=== PATIENT | female | born 1970 | race Caucasian/White ===

== ENCOUNTER → 2020-08-05 11:18 | Outpatient (CLI) | payer BC, SELFPAY ==
--- NOTE | ~2020-08-05 | MM_ITS ---
EXAMINATION: MM screening [facility] BI w cadence HISTORY: Screening mammogram TECHNIQUE: Craniocaudal and mediolateral oblique 3-D tomosynthesis images were obtained and synthetic 2-D images were generated. CAD analysis was submitted and interpreted. COMPARISON: 06/15/2019, 09/21/2018, 05/18/2018, 05/02/2017 BREAST PARENCHYMAL COMPOSITION: There are scattered areas of fibroglandular density. FINDINGS: There is no evidence of suspicious mass, calcification, or architectural distortion to sugg est malignancy in either breast. There has been no suspicious interval change. IMPRESSION: 1. No mammographic evidence of malignancy. 2. Recommend routine screening mammography in one year. BI-RADS Category 1: Negative Reviewed, dictated and finalized at location A. 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
== END ==
PROVIDERS: PCP Family Medicine; Visit Provider Obstetrics & Gynecology
DX: Z12.31 Encounter for screening mammogram for malignant neoplasm of breast (principal)
CPT/HCPCS: 77063; 77067

== ENCOUNTER 2020-09-05 12:27 | Outpatient (CLI) | payer BC, SELFPAY ==
--- NOTE | ~2020-09-05 | XR_ITS ---
EXAMINATION: XR lg joint inject/asp w image DATE: 09/05/2020 13:25 INDICATION: Left hip pain. TECHNIQUE: A time-out was performed to verify the patient's name, date of , and procedure to b e performed. The procedure including the risks, benefits, and alternatives was discussed with the pat ient. Risks discussed included bleeding and infection. The patient understood the risks and agreed to proceed. The skin overlying the left hip joint was prepped and draped in usual sterile fashion. An esthetic was administered with 1% lidocaine subcutaneously. A 22 G needle was advanced under fluoros copic guidance into the joint. Injection of 1 mL of Omnipaque 240 confirmed intra-articular position of the needle. Subsequently, injectate consisting of 5 mL 1% lidocaine and 1 mL 40 mg/mL Depo-Medro l was instilled. The needle was removed and the entry site was cleaned and dressed. There were no i mmediate complications. Fluoroscopy exposure time was 0.0 minutes. The total number of images was 2. FINDINGS: Real-time fluoroscopy demonstrates the needle in the left hip joint. Patient's pain prior t o procedure:2/10. Patient's pain following the procedure: 0/10. IMPRESSION: 1. Fluoroscopy guided left hip joint injection of local anesthetic and steroid with decrease in the p atient's presenting pain. Reviewed, dictated and finalized at location A. 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 Fluoroscopy guided left hip joint injection of local anesthetic and steroid with decrease in the patient's presenting pain.
== END 2020-09-05 12:28 | disposition home or self-care (01) ==
PROVIDERS: PCP Family Medicine; Visit Provider Orthopaedic Surgery Sports Medicine
DX: M25.552 Pain in left hip (principal)
CPT/HCPCS: 20610; 77002; J1030; Q9966

== ENCOUNTER → 2020-12-03 10:44 | Outpatient (CLI) | payer BC, SELFPAY ==
--- NOTE | ~2020-12-03 | US_ITS ---
EXAMINATION: US thyroid EXAM DATE: 12/03/2020 11:01 INDICATION: Nontoxic goiter. TECHNIQUE: Multiple grayscale and Doppler images of the thyroid were obtained (by a technologist who performed the scan) and subsequently reviewed. Individual nodules and recommendations may be reporte d in accordance with TI-RADS system as designated by the 2017 ACR White Paper TI-RADS committee. Mena catherine is made to prior examination from 01/05/2005. FINDINGS: The right thyroid lobe measures 5.3 x 1.5 x 1.7 cm, the left measuring 4.0 x 1.1 x 1.3 cm. There is r elatively homogeneous thyroid echogenicity with expected amount of vascularity. Previous exam had a predominantly cystic right thyroid lobe midpole lesion measuring 3.2 x 2.0 x 2.1 cm. There is now a solid-appearing lesion in this location, could be the same lesion with collapse of the cystic components, today measuring 1.3 x 0.7 x 1.1, solid (2 points), hypoechoic (2 points), wid er than tall, lobulated margin (2 points), without echogenic foci, category TR4 for this nodule. No other nodule identified. IMPRESSION: Right thyroid lobe nodule; recommend one-year follow-up ultrasound. Reviewed, dictated and finalized at location B.
== END ==
PROVIDERS: PCP Family Medicine; Visit Provider Internal Medicine Endocrinology, Diabetes & Metabolism
DX: E04.9 Nontoxic goiter, unspecified (principal)
CPT/HCPCS: 76536

== ENCOUNTER 2021-05-18 09:34 | Outpatient (CLI) | payer BC, SELFPAY ==
--- NOTE | 2021-05-21 12:42 | WPDHOLTEREM ---
Holter/Event Monitor Holter/Event Monitor Date of procedure: 05/18/21 Holter/Event Procedure: 24 Hr Holter Monitor Indications: Palpitations Conclusion: 1. 24 hour holter monitor on 05/18/21. 2. Predominant rhythm is sinus rhythm. HR range 49-122 bpm; average 70 bpm. 3. There are 1,576 premature supraventricular complexes, 9 supraventricular couplets, 3 supraventricular bigeminy and 48 supraventricular trigeminy. There are 34 episodes of atrial tachycardia, fastest HR 182 bpm and longest lasting 10 beats. 4. There are 5 premature ventricular complexes. No ventricular tachycardia. 5. No sinoatrial or atrioventricular ventricular blocks. No significant pauses greater than 2 seconds. 6. Patient reports symptoms of palpitations and headache which demonstrate sinus rhythm, HR range 57-112 bpm and 2 PAC's.
== END 2021-05-18 09:35 | disposition home or self-care (01) ==
PROVIDERS: PCP Family Medicine; Visit Provider Physician Assistant
DX: R00.2 Palpitations (principal)
CPT/HCPCS: 93225; 93226

== ENCOUNTER → 2021-09-23 10:38 | Outpatient (CLI) | payer BC, SELFPAY ==
--- NOTE | ~2021-09-23 | MM_ITS ---
EXAMINATION: MM screening [facility] BI w cadence HISTORY: Screening mammogram TECHNIQUE: Craniocaudal and mediolateral oblique 3-D tomosynthesis images were obtained and synthetic 2-D images were generated. CAD analysis was submitted and interpreted. COMPARISON: 08/05/2020, 06/15/2019 bilateral screening mammogram examinations BREAST PARENCHYMAL COMPOSITION: There are scattered areas of fibroglandular density. FINDINGS: There is no evidence of suspicious mass, calcification, or architectural distortion to sugg est malignancy in either breast. There has been no suspicious interval change. IMPRESSION: 1. No mammographic evidence of malignancy. 2. Recommend routine screening mammography in one year. BI-RADS Category 1: Negative Reviewed, dictated and finalized at location A.
== END ==
PROVIDERS: PCP Family Medicine; Visit Provider Obstetrics & Gynecology
DX: Z12.31 Encounter for screening mammogram for malignant neoplasm of breast (principal)
CPT/HCPCS: 77063; 77067

== ENCOUNTER → 2022-12-08 15:06 | Outpatient (CLI) | payer BC, SELFPAY ==
--- NOTE | ~2022-12-08 | MM_ITS ---
EXAMINATION: MM screening [facility] BI w cadence HISTORY: Screening TECHNIQUE: Craniocaudal and mediolateral oblique 3-D tomosynthesis images were obtained and synthetic 2-D images were generated. CAD analysis was submitted and interpreted. COMPARISON: Comparison to multiple prior studies sequentially, with oldest reviewed study dated 04/05. BREAST PARENCHYMAL COMPOSITION: Breast composed of scattered areas of fibroglandular density FINDINGS: There is no evidence of suspicious mass, calcification, or architectural distortion to sugg est malignancy in either breast. There has been no suspicious interval change. IMPRESSION: 1. No mammographic evidence of malignancy. 2. Recommend routine screening mammography in one year. BI-RADS Category 1: Negative Reviewed, dictated and finalized at location A.
== END ==
PROVIDERS: PCP Obstetrics & Gynecology; Visit Provider Obstetrics & Gynecology
DX: Z12.31 Encounter for screening mammogram for malignant neoplasm of breast (principal)
CPT/HCPCS: 77063; 77067

== ENCOUNTER 2023-12-12 08:08 | Outpatient (CLI) | payer BC, SELFPAY ==
--- NOTE | ~2023-12-12 | MM_ITS ---
EXAMINATION: MM screening [facility] BI w cadence HISTORY: Screening TECHNIQUE: Craniocaudal and mediolateral oblique 3-D tomosynthesis images were obtained and synthetic 2-D images were generated. CAD analysis was submitted and interpreted. COMPARISON: Comparison to multiple prior studies sequentially, with oldest reviewed study dated 05/04. BREAST PARENCHYMAL COMPOSITION: Not dense: There are scattered areas of fibroglandular density. FINDINGS: There is no evidence of suspicious mass, calcification, or architectural distortion to sugg est malignancy in either breast. There has been no suspicious interval change. IMPRESSION: 1. No mammographic evidence of malignancy. 2. Recommend routine screening mammography in one year. BI-RADS Category 1: Negative Reviewed, dictated and finalized at location B.
== END 2023-12-12 08:09 | disposition home or self-care (01) ==
LOC: ANHIMG 08:11
PROVIDERS: PCP Nurse Practitioner Obstetrics & Gynecology; Visit Provider Nurse Practitioner Obstetrics & Gynecology
DX: Z12.31 Encounter for screening mammogram for malignant neoplasm of breast (principal)
CPT/HCPCS: 77063; 77067

== ENCOUNTER 2024-07-02 13:04 | Outpatient (CLI) | payer BC, SELFPAY ==
--- NOTE | ~2024-07-02 | CT_ITS ---
CT of the Abdomen and Pelvis: Indication: Abdominal pain Technique: 2.5 mm axial scans were obtained through the abdomen and pelvis following intravenous adm inistration of 100 cc of Omnipaque 350. Dose reduction technique was used on this scan by utilizing a utomated exposure control and iterative reconstruction technique. The dose-length product (DLP) was 6 23.76 mGy-cm. Findings: Scans through the lung bases are unremarkable. The liver, spleen, pancreas, gallbladder, adrenals and kidneys are within normal limits. There are mi ld atherosclerotic calcifications of the aorta. No lymphadenopathy. No bowel obstruction or bowel wall thickening. There is no evidence to suggest acute appendicitis. Images through the pelvis were performed. Urinary bladder unremarkable. IUD in place. No pelvic mass seen. No ascites. Impression: No significant abnormalities seen. Reviewed, dictated and finalized at [facility]. 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
== END 2024-07-02 13:05 | disposition home or self-care (01) ==
LOC: MICIMG 13:05
PROVIDERS: PCP Obstetrics & Gynecology; Visit Provider Obstetrics & Gynecology
DX: R10.9 Unspecified abdominal pain (principal)
CPT/HCPCS: 74177; Q9967

== ENCOUNTER 2025-01-09 09:19 | Outpatient (CLI) | payer BC, SELFPAY ==
--- NOTE | ~2025-01-09 | MM_ITS ---
EXAMINATION: MM screening casa BI w cadence HISTORY: Screening TECHNIQUE: Craniocaudal and mediolateral oblique 3-D tomosynthesis images were obtained and synthetic 2-D images were generated. CAD analysis was submitted and interpreted. COMPARISON: Comparison to multiple prior studies sequentially, with oldest reviewed study dated 09/21. BREAST PARENCHYMAL COMPOSITION: Dense: The breasts are heterogeneously dense, which may obscure small masses FINDINGS: There is no evidence of suspicious mass, calcification, or architectural distortion to sugg est malignancy in either breast. There has been no suspicious interval change. IMPRESSION: 1. No mammographic evidence of malignancy. 2. Recommend routine screening mammography in one year. BI-RADS Category 1: Negative Reviewed, dictated and finalized at location A.
--- OUTSIDE RECORDS SUMMARY | 2025-01-09 09:30 | XMS_ITS | Clinical Summary ---
Author Organization [email or web address] Address [address] [place] [address] Care Team Providers Care Marketing Director Name Role Phone Anastasia Valentino MD Primary Care Provider Source Comments [email or web address],non-owned Affiliates and Associated Physician Practices is amultiple site organization consisting of ambulatory clinics and hospital sitesin [place], [place], [place] and [place]. This disclosure is being madepursuant to the Care Everywhere program and may not contain all information available regarding this patient. Last updated 18.[email or web address] Allergies No known active allergies Medications * Be aware that medications may not be up to date on this document. Alwaysverify current medications with the patient. 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 Gender Identity Not on file Sexual Orientation Not on file Last Filed Vital Signs Vital Sign Reading Time Taken Comments Blood Pressure 118/72 03/27/2019 9:01 AM CDT Pulse 71 03/27/2019 9:01 AM CDT Temperature 37.3 C (99.1 F) 03/27/2019 9:01 AM CDT Respiratory Rate 16 03/27/2019 9:01 AM CDT Oxygen Saturation 97% 03/27/2019 9:01 AM CDT Inhaled Oxygen Concentration - - Weight 83.9 kg (185 lb) 03/27/2019 9:01 AM CDT Height 170.2 cm (5' 7) 03/27/2019 9:01 AM CDT Body Mass Index 28.98 03/27/2019 9:01 AM CDT Plan of Treatment Health Maintenance Due Date Last Done Comments COLOGUARD (AGES 45-75) - COL ON CA SCREENING 1969 COLON MONITORING 1969 COLONOSCOPY - COLON CA SCREENING 1969 CT COLONOGRAPHY - COLON CA SCREENING 1969 Colorectal Cancer Screening 1969 FIT - COLON CA SCREENING 1969 FLEX SIG - COLON CA SCREENING 1969 LIPID TESTING 1969 MAMMOGRAM 1969 HIV SCREENING 02/26/1984 HEPATITIS C SCREENING 02/21/1987 DTAP/TDAP/TD VACCINES (1 - Tdap) 02/26/1988 HEPATITIS B VACCINE (1 of 3 - 19+ 3-dose series) 02/26/1988 PNEUMOCOCCAL VACCINE 50+ (1 of 1 - PCV) 2019 ZOSTER VACCINE (1 of 2) 2019 SCREENING FOR DIABETES 03/27/2019 COVID-19 VACCINE (1 - 2023-2 5 season) 2024 DEPRESSION SCREENING 07/04/2024 INFLUENZA VACCINE (Season Ended) 2025 HIB VACCINE Aged Out No longer eligi ble based on patient's age to complete this topic HPV VACCINE Aged Out No longer eligi ble based on patient's age to complete this topic MENINGOCOCCAL (Group B) VACC INE SHARED DECISION-MAKING Aged Out No longer eligibl e based on patient's age to complete this topic MENINGOCOCCAL GROUPS A/C/Y/W VACCINE Aged Out No longer eligible b ased on patient's age to complete this topic Insurance [employer] Care Teams Marketing Director Relationship Specialty Start Date End Date Anastasia Valentino MD [address] [place] [address] PCP - General Family Medicine 03/27/19
--- OUTSIDE RECORDS SUMMARY | 2025-01-09 09:30 | XMS_ITS | Encounter Summary ---
Author Organization [facility] Address [address] [place] [address] Care Team Providers Care Faculty I On Call Medical Assistant Name Role Phone Anastasia Valentino MD Primary Care Provider [phone] Anastasia Valentino MD Primary Care Provider [phone] Anastasia Valentino MD Unavailable Encounter Details Date Type Department Care Team (Late st Contact Info) Description 08/26/2017 Orders Only [facility] Information Management [address] [place] [id number] Scanning, Provider Social History Tobacco Use Types Packs/Day Years Used Date Smoking Tobacco: Never Alcohol Use Standard Drinks/Week Comments Yes 0 (1 standard drink = 0.6 oz pur e alcohol) Comments Unknown Sex and Gender Information Value Date Recorded Sex Assigned at Not on file 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 Gender Identity Not on file Sexual Orientation Not on file documented as of this encounter Plan of Treatment Not on file documented as of this encounter Procedures Procedure Name Priority Date/Time Associated Diagnosis Comments CARDIOLOGY DOCUMENT SCAN 08/26/2017 documented in this encounter Results * Cardiology Document Scan (08/26/2017) Anatomical Region Laterality Modality Other us Provider Scanning CV CARDIAC SERVICES PROCEDURES Final Result documented in this encounter Visit Diagnoses Not on filedocumented in this encounter Care Teams Faculty I On Call Medical Assistant Relationship Specialty Start Date End Date Anastasia Valentino MD [address] [place] [address] PCP - General 08/28/15 09/04/17 Anastasia Valentino MD [address] [place] [address] PCP - General Family Medicine 09/05/17 Anastasia Valentino MD [address] [place] [address] 09/05/17 documented as of this encounter
--- OUTSIDE RECORDS SUMMARY | 2025-01-09 09:30 | XMS_ITS | Clinical Summary ---
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 HOLD medication for diarrhea. 80 tablet 1 Active Additional Information Patient not taking.Reported on 06/11/2024 traMADoL (ULTRAM) 50 mg tabletIndicatio ns:Postoperativ e pain Take 1-2 tablets (50-100 mg total) by mouth every 6 (six) hours 56 tablet 1 Active Additional Information Patient not taking.Reported on 06/11/2024 nitrofurantoin (MACRODANTIN) 100 mg capsule TAKE 1 CAPSULE BY MOUTH EVERY 12 HOURS FOR 7 DAYS 2 Active amoxicillin 500 mg tablet/capsuleI ndications:Prop hylactic antibiotic TAKE 4 PILL 1 HOUR BEFORE DENTAL APPOINTMENT. 4 tablet/capsu le 5 3 Active Additional Information Patient not taking.Reported on 06/11/2024 levonorgestreL (Mirena) IUD Take by intrauterine route. Active nystatin-triamc inolone ointment APPLY TO THE AFFECTED AREA(S) BY TOPICAL ROUTE 2 TIMES PER DAY FOR 7 DAYS Active meloxicam (MOBIC) 15 mg tablet Take 1 tablet (15 mg total) by mouth daily 90 tablet 4 Active Additional Information Patient not taking.Reported on 06/11/2024 methylPREDNISol one (MEDROL DOSEPACK) 4 mg DosepackIndicat ions:Acute right-sided low back pain, unspecified whether sciatica present Take 6 tabs on day 1, reduce dose by 1 daily until prescription is complete. 1 packet 4 Active Active Problems Problem Noted Date Diagnosed Date Class 1 obesity in adult 06/19/2021 Primary osteoarthritis of left hip 06/08/2021 Overview (06/08/2021): Added automatically from request for surgery [id number] Palpitations 09/30/2017 Chest heaviness 09/30/2017 PVC (premature ventricular contraction) 10/01/19 18 PAT (paroxysmal atrial tachycardia) ([facility]/H[facility]) Galactorrhea not associated with childbirth 08/2014 Overview (10/13/2023): Galactorrhea not associated with childbirth;Recorded Elsewhere: No Location: [facility] Source: EHR Chronic: N Practice ID: [id number] Billable Time: 08:45:00 AM Hypothyroidism 04/30/2013 Immunizations Immunization Administration Dates Next Due Influenza, Quadrivalent, Rec ombinant, Egg Free, Preservative Free, Intramuscular 04/02/2020,06/14/2019 Influenza, Quadrivalent, Spl it, Preservative Free, Intramuscular 04/04/2018 TD Preservative Free 10/18/2017 Surgical History Surgery Date Site/Laterality Comments KNEE ARTHROSCOPY W/ ACL RECONSTRUCTION Medical History Medical History Date Comments Cardiac rhythm disturbance Family History Medical History Relation Name Comments Anesthesia problems Mother received anesthesia during nephrectomy/appy. had beginnings of dementia. prolonged surgery, feels anesthesia exacerbated dementia. Has not imporoved. Mental illness Mother Relation Name Status Comments Mother Social History Tobacco Use Types Packs/Day Years Used Date Smoking Tobacco: Never Smokeless Tobacco: Never Alcohol Use Standard Drinks/Week Comments Yes 0 (1 standard drink = 0.6 oz pur e alcohol) AUDIT-C Answer Date Recorded Q1: How often do you have a drink containing alc ohol? 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 Gender Identity Not on file Sexual Orientation Not on file Obstetrics History Last Filed Vital Signs Vital Sign Reading Time Taken Comments Blood Pressure 131/77 06/11/2024 6:08 PM FINANCE ASSISTANT Pulse 68 06/11/2024 6:08 PM FINANCE ASSISTANT Temperature 36.6 C (97.9 F) 06/11/2024 6:08 PM FINANCE ASSISTANT Respiratory Rate 18 06/11/2024 6:08 PM FINANCE ASSISTANT Oxygen Saturation 98% 06/11/2024 6:08 PM FINANCE ASSISTANT Inhaled Oxygen Concentration - - Weight 82.5 kg (181 lb 14.4 oz) 06/11/2024 6:08 PM FINANCE ASSISTANT Height 170.2 cm (5' 7.01) 06/11/2024 6:08 PM CS T Body Mass Index 28.48 06/11/2024 6:08 PM FINANCE ASSISTANT Plan of Treatment Health Maintenance Due Date Last Done Comments Cervical Cancer Screening 1969 Colon Cancer Screening-Colonoscopy 1969 Depression Screening 1969 Hepatitis C Screening 1969 Hepatitis B Screening 1987 Regular Well Visit/Exam 18-64 1987 DTaP/Tdap/Td Vaccine (1 - Tdap) 10/19/2017 10/18/2017 Zoster Vaccine (1 of 2) 2019 Breast Cancer Screening-Mammogram 12/09/2023 12/08/2022, 08/05/2020 Covid-19 Vaccine (2023-2 5 season) 2024 10/29/2020, 10/01/2020 Influenza Vaccine (Season Ended) 2025 04/02/2020, 06/14/2019, 04/04/2018 Pneumococcal vaccine <65 Aged Out No longer eligible based on patient's age to complete this topic Medical Devices Implanted Type Area Esthetician Permanent Makeup Artist Device Identifier Shelf Expiration Date Model / Serial / Lot [employer] [id number] Cup Acetabular Bi Mentum Od49mm Femoral Proximal Press Fit - Sna - [id number] Implanted:Qty: 1 on 06/25/2021 by Rashid Amaya MD at [facility] Other - see comments Left: Hip [employer] [id number] 10/01/2024 [id number] / NA / [id number] Description:Implant pause pe rformed [employer] [id number] Actis Collar Hip 7 Standard Offset Stem Femoral - Sna - [id number] Implanted:Qty: 1 on 06/25/2021 by Rashid Amaya MD at [facility] Other - see comments Left: Hip [employer] [id number] 06/02/2031 [id number] / NA / [id number] Description:Implant pause pe rformed [employer] [id number] Articul/Abelardo 28mm Cementless Hip +1.5mm 12/14 Taper Head Femoral Latex Free - Sna - [id number] Implanted:Qty: 1 on 06/25/2021 by Rashid Amaya MD at [facility] Other - see comments Left: Hip [employer] [id number] 05/03/2026 [id number] / NA / [id number] Description:Implant pause pe rformed [employer] [id number] Liner Acetabular Bi Mentum Polyethylene Od49mm Id28mm Femoral Proximal - Sna - [id number] Implanted:Qty: 1 on 06/25/2021 by Rashid Amaya MD at [facility] Other - see comments Left: Hip [employer] [id number] 10/01/2025 [id number] / NA / [id number] Description:Implant pause pe rformed [place] For more information, please contact: [phone] * Full Code (Latest Code Status on File) Date Activated Date Inactivated Comments 06/25/2021 8:27 AM 06/25/2021 7:28 PM Care Teams Backshoe Person Relationship Specialty Start Date End Date Anastasia Valentino MD [address] [place] [address] PCP - General Family Medicine 09/05/17 Anastasia Valentino MD [address] [place] [address] 09/05/17
--- OUTSIDE RECORDS SUMMARY | 2025-01-09 09:30 | XMS_ITS | Data Portability ---
Author Organization [facility] Address [address] [place] [address] [place] [address] Assessment Encounter Date Assessment Date Assessment LastModified by Organization Details LastModified Time 02/18/2023 02/18/2023 Annual gynecological exam performed. Patient will come back in a year unless there are new symptoms. [email or web address] Not available 02/18/2023 09:50:45 Plan of Treatment Reminders Order Date Submit Date Provider Last Modified By Organization Details Last Modified Time Details Appointments None recorded. Lab test, urine 2023 024 [email or web address], [address], [place], [address], 4 12:05:35 CBC w/ auto diff 2023 024 [facility] (Lab), [address], [place], [address], 4 11:23:00 CMP, serum or plasma 2023 024 [facility] (Lab), [address] [place], [address], 4 11:23:01 TSH, serum or plasma 2022 023 [facility] (Lab), [address] [place], [address], 3 05:37:45 HbA1c (hemoglobin A1c), blood 2022 023 [facility] (Lab), [address], [place], [address], 3 05:37:46 lipid panel, blood 2022 023 [facility] (Lab), [address], [place], [address], 3 05:37:45 CBC w/ auto diff 2022 023 [facility] (Lab), [address], [place], [address], 3 05:37:44 CMP, serum or plasma 2022 023 [facility] (Lab), [address], [place], [address], 3 05:37:45 Referral None recorded. Procedures None recorded. Surgeries None recorded. Imaging US, transvagina l 2023 024 [email or web address] [facility], [address], [address], [place], [address], 4 19:53:43 US, pelvis, transabdomi nal + transvagina l 2023 024 [email or web address], [address], [place], [address], 4 12:24:44 Medication Orders None recorded. Patient TargetsNo targets recorded. Patient InstructionsNo instructions recorded. Reason for Referral None Reported. Results Created Date Observation Date Name Description Value Unit Range Abnormal Flag Note LastModifiedBy Organization Detail LastModifiedTime 02/19/20 23 02/18/2023 CBC W/DIF F WBC 4.8 10'3/ uL 3.6-10 .2 Not Available [facility] (Lab) [address], [place], [address], 02/19/2023 05:37:44 02/19/20 23 02/18/2023 CBC W/DIF F RBC 4.08 10'6/ uL (based on docume nted legal sex) 4.10-5 .30 low Not Available [facility] (Lab) [address], [place], [address], 02/19/2023 05:37:44 02/19/20 23 02/18/2023 CBC W/DIF F HGB 12.8 g/dL (based on docume nted legal sex) 11.9-1 5.8 Not Available [facility] (Lab) [address], [place], [address], 02/19/2023 05:37:44 02/19/20 23 02/18/2023 CBC W/DIF F HCT 39.5 % (based on docume nted legal sex) 37.4-4 8.3 Not Available [facility] (Lab) [address], [place], [address], 02/19/2023 05:37:44 02/19/20 23 02/18/2023 CBC W/DIF F MCV 96.8 fL 82.0-9 9.0 Not Available [facility] (Lab) [address], [place], [address], 02/19/2023 05:37:44 02/19/20 23 02/18/2023 CBC W/DIF F MCH 31.4 pg 27.0-3 3.0 Not Available [facility] (Lab) [address], [place], [address], 02/19/2023 05:37:44 02/19/20 23 02/18/2023 CBC W/DIF F MCHC 32.4 g/dL 32.0-3 6.0 Not Available [facility] (Lab) [address], [place], [address], 02/19/2023 05:37:44 08/18/20 23 02/18/2023 CBC W/DIF F RDW 12.9 % 11.0-1 5.0 Not Available [facility] (Lab) [address], [place], [address], 02/19/2023 05:37:44 02/19/20 23 02/18/2023 CBC W/DIF F plt 226 10'3/ uL 150-45 0 Not Available [facility] (Lab) [address], [place], [address], 02/19/2023 05:37:44 02/19/20 23 02/18/2023 CBC W/DIF F MPV 11.0 fL 9.8-12 .7 Not Available [facility] (Lab) [address], [place], [address], 02/19/2023 05:37:44 02/19/20 23 02/18/2023 CBC W/DIF F NRBC's 0.0 % 0 Not Available [facility] (Lab) [address], [place], [address], 02/19/2023 05:37:44 02/19/20 23 02/18/2023 CBC W/DIF F absolute NRBCs 0.0 10'3/ uL 0 Not Available [facility] (Lab) [address], [place], [address], 02/19/2023 05:37:44 02/19/20 23 02/18/2023 CBC W/DIF F neutrophils 58.6 % 37.0-7 2.0 Not Available [facility] (Lab) [address], [place], [address], 02/19/2023 05:37:44 02/19/20 23 02/18/2023 CBC W/DIF F lymphocytes 30.5 % 16.0-4 8.0 Not Available [facility] (Lab) [address], [place], [address], 02/19/2023 05:37:44 02/19/20 23 02/18/2023 CBC W/DIF F monocytes 7.9 % 4.0-14 .0 Not Available [facility] (Lab) [address] [facility], [place], [address], 02/19/2023 05:37:44 02/19/20 23 02/18/2023 CBC W/DIF F eosinophils 1.5 % 0.0-9. 0 Not Available [facility] (Lab) [address] [facility], [place], [address], 02/19/2023 05:37:44 02/19/20 23 02/18/2023 CBC W/DIF F basophils 1.3 % 0.0-2. 0 Not Available [facility] (Lab) [address] [facility], [place], [address], 02/19/2023 05:37:44 02/19/20 23 02/18/2023 CBC W/DIF F immature granulocytes 0.2 % no define d refere nce range Not Available [facility] (Lab) [address] [facility], [place], [address], 02/19/2023 05:37:44 02/19/20 23 02/18/2023 CBC W/DIF F absolute neutrophils 2.8 10'3/ uL 1.1-6. 0 Not Available [facility] (Lab) [address] [place], [address], 02/19/2023 05:37:44 02/19/20 23 02/18/2023 CBC W/DIF F absolute lymphocytes 1.5 10'3/ uL 0.7-3. 4 Not Available [facility] (Lab) [address] [place], [address], 02/19/2023 05:37:44 02/19/20 23 02/18/2023 CBC W/DIF F absolute monocytes 0.4 10'3/ uL 0.3-1. 0 Not Available [facility] (Lab) [address] [facility], [place], [address], 02/19/2023 05:37:44 02/19/20 23 02/18/2023 CBC W/DIF F absolute eosinophils 0.1 10'3/ uL 0.0-0. 6 Not Available [facility] (Lab) [address] [facility], [place], [address], 02/19/2023 05:37:44 02/19/20 23 02/18/2023 CBC W/DIF F absolute basophils 0.1 10'3/ uL 0.0-0. 1 Not Available [facility] (Lab) [address] [facility], [place], [address], 02/19/2023 05:37:44 02/19/20 23 02/18/2023 CBC W/DIF F absolute immature granulocytes 0.0 10'3/ uL 0.00-0 .10 2022 3:11 AM: P indic ates parti al resul ts on a panel have been relea sed. Addit ional resul ts will follo w. 2022 3:11 AM: This resul t has been final verif ied. No addit ional or yang ed resul ts are expec rosalina. Not Available [facility] (Lab) [address] [facility], [place], [address], 02/19/2023 05:37:44 02/19/20 23 02/18/2023 LIPID PANEL ,AMA (LDL- CALC) total cholesterol 165 mg/dL 0-199 Not Available [facility] (Lab) [address] [facility], [place], [address], 02/19/2023 05:37:44 02/19/20 23 02/18/2023 LIPID PANEL ,AMA (LDL- CALC) triglyceride s 58 mg/dL 0.00-1 50.00 NCEP Refer ence Value s for Trigl yceri jose: Sabi l: <150 mg/dL Borde rline High: 150 - 199 mg/dL High: 200 - 499 mg/dL Very High: >/= 500 mg/dL Not Available [facility] (Lab) [address] [facility], [place], [address], 02/19/2023 05:37:44 02/19/20 23 02/18/2023 LIPID PANEL ,AMA (LDL- CALC) HDL cholesterol 56 mg/dL >40 Not Available [facility] (Lab) [address] [facility], [place], [address], 02/19/2023 05:37:44 02/19/20 23 02/18/2023 LIPID PANEL ,AMA (LDL- CALC) LDL cholesterol 95 mg/dL 0-99 Cutof f value s recom elmer d by the Natio nal Mary stero l Educa tion Progr am: GURWINDER ABLE: Mary stero l <200 mg/dL LDL <100 mg/dL BORDE RLINE : Mary stero l 200-2 39 mg/dL LDL 101-1 59 mg/dL HIGHE R RISK: Mary stero l >240 mg/dL LDL >160 mg/dL , HDL <40 mg/dL Not Available [facility] (Lab) [address] [facility], [place], [address], 02/19/2023 05:37:44 02/19/2002/18/2023 LIPID PANEL ,AMA (LDL- CALC) non-HDL cholesterol 109 mg/dL no refere nce range A reaso nable goal for non-H DL mary stero l is one that is 30 mg/dL highe r than the LDL mary stero l goal. Not Available [facility] (Lab) [address] [facility], [place], [address], 02/19/2023 05:37:44 02/19/2002/18/2023 LIPID PANEL ,AMA (LDL- CALC) chol/HDL ratio 2.9 . 0.0-5. 0 On October 26, 2022, [facility] labor narda yagn ed the equat ion for calcu latin g estim ated low-d ensit y lipop rotei n-cho leste rol (LDL- C) from the Fried renetta equat ion to the Cyndie n/Hop kins equat ion. This new equat ion is only valid for lipid panel s with trigl yceri jose < 400 mg/dL . Studi es have demon amrita ed that this new equat ion will impro ve the accur acy of LDL-C , espec ially in scena becker when LDL-C cintia ntrat ions are relat ively low (< 100 mg/dL ), trigl yceri jose are eleva rosalina, or patie nt is non-f astin g. Refer ences : - Cyndie gaytan, Timbo Crowell, Nino Duenas , Vicki astorga, Harlan Loaiza, Harlan pearson, Rafael Berg. Nate bland , and Manuelito Ness . 2013. Comp ariso n of a Novel Metho d vs the Fried renetta Equat ion for Estim ating Low-D ensit y Lipop rotei n Mary stero l Level s from the Stand nikita Lipid Profi le. [place]: The Journ al of the Ameri can Medic al Assoc iatio n 310 (19): 2060- . - Yeni robles V, Lakesha J, Blanche ar A, Diana M, Van e R, Mark robles E, Nate bland RS, Grover SR, Cyndie gaytan SS. Fast ing Versu s Nonfa sting and Low-D ensit y Lipop rotei n Mary stero l Accur acy. Circu latio n. 2017Jul 05;137 (1):1 0-19. Not Available [facility] (Lab) [address] [facility], [place], [address], 02/19/2023 05:37:44 02/19/20 23 02/18/2023 CMP(C OMPRE HENSI VE METAB OLIC PANEL ) sodium 139 mmol/ L 133-14 6 Not Available [facility] (Lab) [address] [facility], [place], [address], 02/19/2023 05:37:45 02/19/20 23 02/18/2023 CMP(C OMPRE HENSI VE METAB OLIC PANEL ) potassium 4.1 mmol/ L 3.5-5. 1 Not Available [facility] (Lab) [address] [facility], [place], [address], 02/19/2023 05:37:45 02/19/20 23 02/18/2023 CMP(C OMPRE HENSI VE METAB OLIC PANEL ) chloride 105 mmol/ L 98-107 Not Available [facility] (Lab) [address] [facility], [place], [address], 02/19/2023 05:37:45 02/19/20 23 02/18/2023 CMP(C OMPRE HENSI VE METAB OLIC PANEL ) carbon dioxide 30 mmol/ L 21-31 Not Available [facility] (Lab) [address] [facility], [place], [address], 02/19/2023 05:37:45 02/19/20 23 02/18/2023 CMP(C OMPRE HENSI VE METAB OLIC PANEL ) anion gap 4 mmol/ L 4-13 Not Available [facility] (Lab) [address] [facility], [place], [address], 02/19/2023 05:37:45 02/19/20 23 02/18/2023 CMP(C OMPRE HENSI VE METAB OLIC PANEL ) blood urea nitrogen 10 mg/dL 7-25 Not Available [facility] (Lab) [address] [facility], [place], [address], 02/19/2023 05:37:45 02/19/20 23 02/18/2023 CMP(C OMPRE HENSI VE METAB OLIC PANEL ) creatinine 0.77 mg/dL 0.60-1 .30 Not Available [facility] (Lab) [address] [facility], [place], [address], 02/19/2023 05:37:45 02/19/20 23 02/18/2023 CMP(C OMPRE HENSI VE METAB OLIC PANEL ) egfrcr (CKD-epi 2020) >90 mL/mi n/1.7 3_m2 >=60 Not Available [facility] (Lab) [address] [facility], [place], [address], 02/19/2023 05:37:45 02/19/20 23 02/18/2023 CMP(C OMPRE HENSI VE METAB OLIC PANEL ) calcium 9.0 mg/dL 8.3-10 .5 Not Available [facility] (Lab) [address] [facility], [place], [address], 02/19/2023 05:37:45 02/19/20 23 02/18/2023 CMP(C OMPRE HENSI VE METAB OLIC PANEL ) glucose 87 mg/dL 70-100 Not Available [facility] (Lab) [address] [facility], [place], [address], 02/19/2023 05:37:45 02/19/20 23 02/18/2023 CMP(C OMPRE HENSI VE METAB OLIC PANEL ) protein, total 6.9 g/dL 6.4-8. 3 Not Available [facility] (Lab) [address] [facility], [place], [address], 02/19/2023 05:37:45 02/19/20 23 02/18/2023 CMP(C OMPRE HENSI VE METAB OLIC PANEL ) albumin 4.3 g/dL 3.5-5. 0 Not Available [facility] (Lab) [address] [facility], [place], [address], 02/19/2023 05:37:45 02/19/20 23 02/18/2023 CMP(C OMPRE HENSI VE METAB OLIC PANEL ) ALT 11 units /L 9-43 Not Available [facility] (Lab) [address] [facility], [place], [address], 02/19/2023 05:37:45 02/19/20 23 02/18/2023 CMP(C OMPRE HENSI VE METAB OLIC PANEL ) alkaline phosphatase 48 units /L 34-104 Not Available [facility] (Lab) [address] [facility], [place], [address], 02/19/2023 05:37:45 02/19/20 23 02/18/2023 CMP(C OMPRE HENSI VE METAB OLIC PANEL ) AST 14 units /L 13-39 Not Available [facility] (Lab) [address] [facility], [place], [address], 02/19/2023 05:37:45 02/19/20 23 02/18/2023 CMP(C OMPRE HENSI VE METAB OLIC PANEL ) bilirubin, total 0.6 mg/dL 0.2-1. 2 Not Available [facility] (Lab) [address] [facility], [place], [address], 02/19/2023 05:37:45 02/19/20 23 02/18/2023 TSH, REFLE X FREE T4 TSH 2.09 uIU/m L 0.30-5 .33 Not Available [facility] (Lab) [address] [facility], [place], [address], 02/19/2023 05:37:45 02/19/20 23 02/18/2023 HEMOG LOBIN A1C hemoglobin A1C 5.4 % 0-5.6 The Ameri can Diabe kalani Assoc iatio n recom mends that a prima ry goal of thera py elleul d be a HBA1C of < 7% and that physi cians shoul d reeva luate the treat ment regim en in patie nts with HBA1C value s consi stent ly > 8%. 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 Elect jazz laurent by Felicitas Good ica on 2022 at 12:31 PM ----- ----- ----- ----- ----- ----- ----- ----- ----- ----- ----- ----- ----- ----- ----- ----- ----- ---- HPV RESUL TS: HPV mRNA E6/E7 : No HPV mRNA Detec rosalina NOTE: This high risk HPV mRNA assay detec ts fourt een high- risk HPV types (16, 18, 31, 33, 35, 39, 45, 51, 52, 56, 58, 59, 66, 68) witho ut diffe renti ation . COMME NT: This speci men was revie wed by a Cytot echno logis t and/o r Patho logis t (as indic ated in this repor t) after evalu ation using the Thinp rep Imagi ng Syste m. CLINI MICHELLE INFOR MATIO N: Menst rual Statu s: LMP (if appli cable ): Clini michelle Histo ry/Pr eviou s Pap: Type of Neopl love (if appli cable ): Signi fican t Clini michelle Findi ngs: Other Histo ry: Hormo bogdan (if appli cable ): PAP EDUCA JENY L NOTE: The Pap Test is a scree ovidio test with an inher ent false negat gaby rate. Liqui d-bas ed sampl ing may decre ase, but will not elimi bety, false negat gaby resul ts. A negat gaby resul t does not precl ude the prese nce and/o r devel opmen t of disea se, since the prese nce of abnor mal cells in the sampl e depen ds on the locat ion of the lesio n and sampl ing techn ique. Deidre nued regul ar scree ovidio is the best metho d of cance r preve ntion . If repor rosalina cytol ogic findi ng do not corre late with physi michelle and/o r histo rical findi ngs, furth er inves tigat ion is recom elmer d, as clini asda chery nted. Not Available [facility] (Lab) [address] [facility], [place], [address], 02/21/2023 13:34:44 06/15/20 24 06/15/2024 CBC W/DIF F WBC 5.4 10'3/ uL 3.5-10 .5 Not Available [facility] (Lab) [address] [facility], [place], [address], 06/16/2024 11:23:00 06/15/20 24 06/15/2024 CBC W/DIF F RBC 4.22 10'6/ uL (based on docume nted legal sex) 3.80-5 .20 Not Available [facility] (Lab) [address] [facility], [place], [address], 06/16/2024 11:23:00 06/15/20 24 06/15/2024 CBC W/DIF F HGB 13.1 g/dL (based on docume nted legal sex) 11.6-1 5.4 Not Available [facility] (Lab) [address] [place], [address], 06/16/2024 11:23:00 06/15/20 24 06/15/2024 CBC W/DIF F HCT 41.3 % (based on docume nted legal sex) 34.0-4 5.0 Not Available [facility] (Lab) [address] [facility], [place], [address], 06/16/2024 11:23:00 06/15/20 24 06/15/2024 CBC W/DIF F MCV 97.9 fL 80.0-9 9.0 Not Available [facility] (Lab) [address] [facility], [place], [address], 06/16/2024 11:23:00 06/15/20 24 06/15/2024 CBC W/DIF F MCH 31.0 pg 27.0-3 4.0 Not Available [facility] (Lab) [address] [facility], [place], [address], 06/16/2024 11:23:00 06/15/20 24 06/15/2024 CBC W/DIF F MCHC 31.7 g/dL 32.0-3 5.5 low Not Available [facility] (Lab) [address] [facility], [place], [address], 06/16/2024 11:23:00 06/15/20 24 06/15/2024 CBC W/DIF F RDW 13.1 % 11.0-1 5.0 Not Available [facility] (Lab) [address] [facility], [place], [address], 06/16/2024 11:23:00 06/15/20 24 06/15/2024 CBC W/DIF F plt 234 10'3/ uL 150-40 0 Not Available [facility] (Lab) [address] [facility], [place], [address], 06/16/2024 11:23:00 06/15/20 24 06/15/2024 CBC W/DIF F MPV 10.8 fL 8.8-12 .1 Not Available [facility] (Lab) [address] [facility], [place], [address], 06/16/2024 11:23:00 06/15/20 24 06/15/2024 CBC W/DIF F NRBC's 0.0 % 0.0 Not Available [facility] (Lab) [address], [place], [address], 06/16/2024 11:23:00 06/15/20 24 06/15/2024 CBC W/DIF F absolute NRBCs 0.0 10'3/ uL no refere nce range establ ished Not Available [facility] (Lab) [address], [place], [address], 06/16/2024 11:23:00 06/15/20 24 06/15/2024 CBC W/DIF F neutrophils 58.5 % 34.0-7 3.0 Not Available [facility] (Lab) [address], [place], [address], 06/16/2024 11:23:00 06/15/20 24 06/15/2024 CBC W/DIF F lymphocytes 30.2 % 15.0-5 0.0 Not Available [facility] (Lab) [address] [facility], [place], [address], 06/16/2024 11:23:00 06/15/20 24 06/15/2024 CBC W/DIF F monocytes 8.8 % 1.0-15 .0 Not Available [facility] (Lab) [address] [facility], [place], [address], 06/16/2024 11:23:00 06/15/20 24 06/15/2024 CBC W/DIF F eosinophils 1.5 % 0.0-8. 0 Not Available [facility] (Lab) [address] [facility], [place], [address], 06/16/2024 11:23:00 06/15/20 24 06/15/2024 CBC W/DIF F basophils 0.6 % 0.0-2. 0 Not Available [facility] (Lab) [address], [place], [address], 06/16/2024 11:23:00 06/15/20 24 06/15/2024 CBC W/DIF F immature granulocytes 0.4 % no define d refere nce range Not Available [facility] (Lab) [address] [facility], [place], [address], 06/16/2024 11:23:00 06/15/20 24 06/15/2024 CBC W/DIF F absolute neutrophils 3.1 10'3/ uL 1.5-8. 0 Not Available [facility] (Lab) [address] [facility], [place], [address], 06/16/2024 11:23:00 06/15/20 24 06/15/2024 CBC W/DIF F absolute lymphocytes 1.6 10'3/ uL 1.0-4. 0 Not Available [facility] (Lab) [address] [facility], [place], [address], 06/16/2024 11:23:00 06/15/20 24 06/15/2024 CBC W/DIF F absolute monocytes 0.5 10'3/ uL 0.2-1. 0 Not Available [facility] (Lab) [address] [facility], [place], [address], 06/16/2024 11:23:00 06/15/20 24 06/15/2024 CBC W/DIF F absolute eosinophils 0.1 10'3/ uL 0.0-0. 6 Not Available [facility] (Lab) [address] [facility], [place], [address], 06/16/2024 11:23:00 06/15/20 24 06/15/2024 CBC W/DIF F absolute basophils 0.0 10'3/ uL 0.0-0. 3 Not Available [facility] (Lab) [address] [facility], [place], [address], 06/16/2024 11:23:00 06/15/20 24 06/15/2024 CBC W/DIF F absolute immature granulocytes 0.0 10'3/ uL 0.00-0 .10 06/16 8:40 AM: P indic ates parti al resul ts on a panel have been relea sed. Addit ional resul ts will follo w. 06/16 8:40 AM: This resul t has been final verif ied. No addit ional or yang ed resul ts are expec rosalina. Not Available [facility] (Lab) [address] [facility], [place], [address], 06/16/2024 11:23:00 06/15/20 24 06/15/2024 CMP(C OMPRE HENSI VE METAB OLIC PANEL ) sodium 138 mmol/ L 133-14 6 Not Available [facility] (Lab) [address] [facility], [place], [address], 06/16/2024 11:23:01 06/15/20 24 06/15/2024 CMP(C OMPRE HENSI VE METAB OLIC PANEL ) potassium 4.3 mmol/ L 3.5-5. 1 Not Available [facility] (Lab) [address] [facility], [place], [address], 06/16/2024 11:23:01 06/15/20 24 06/15/2024 CMP(C OMPRE HENSI VE METAB OLIC PANEL ) chloride 101 mmol/ L 98-107 Not Available [facility] (Lab) [address] [facility], [place], [address], 06/16/2024 11:23:01 06/15/20 24 06/15/2024 CMP(C OMPRE HENSI VE METAB OLIC PANEL ) carbon dioxide 30 mmol/ L 21-31 Not Available [facility] (Lab) [address] [facility], [place], [address], 06/16/2024 11:23:01 06/15/20 24 06/15/2024 CMP(C OMPRE HENSI VE METAB OLIC PANEL ) anion gap 7 mmol/ L 4-13 Not Available [facility] (Lab) [address] [place], [address], 06/16/2024 11:23:01 06/15/20 24 06/15/2024 CMP(C OMPRE HENSI VE METAB OLIC PANEL ) blood urea nitrogen 17 mg/dL 7-25 Not Available [facility] (Lab) [address] [facility], [place], [address], 06/16/2024 11:23:01 06/15/20 24 06/15/2024 CMP(C OMPRE HENSI VE METAB OLIC PANEL ) creatinine 0.72 mg/dL 0.60-1 .30 Not Available [facility] (Lab) [address] [facility], [place], [address], 06/16/2024 11:23:01 06/15/20 24 06/15/2024 CMP(C OMPRE HENSI VE METAB OLIC PANEL ) egfrcr (CKD-epi 2020) >90 mL/mi n/1.7 3_m2 >=60 Not Available [facility] (Lab) [address] [facility], [place], [address], 06/16/2024 11:23:01 06/15/20 24 06/15/2024 CMP(C OMPRE HENSI VE METAB OLIC PANEL ) calcium 8.8 mg/dL 8.3-10 .5 Not Available [facility] (Lab) [address], [place], [address], 06/16/2024 11:23:01 06/15/20 24 06/15/2024 CMP(C OMPRE HENSI VE METAB OLIC PANEL ) glucose 66 mg/dL 70-100 low Not Available [facility] (Lab) [address] [facility], [place], [address], 06/16/2024 11:23:01 06/15/20 24 06/15/2024 CMP(C OMPRE HENSI VE METAB OLIC PANEL ) protein, total 7.0 g/dL 6.4-8. 3 Not Available [facility] (Lab) [address] [facility], [place], [address], 06/16/2024 11:23:01 06/15/20 24 06/15/2024 CMP(C OMPRE HENSI VE METAB OLIC PANEL ) albumin 4.4 g/dL 3.5-5. 0 Not Available [facility] (Lab) [address] [facility], [place], [address], 06/16/2024 11:23:01 06/15/20 24 06/15/2024 CMP(C OMPRE HENSI VE METAB OLIC PANEL ) ALT 15 units /L 9-43 Not Available [facility] (Lab) [address], [place], [address], 06/16/2024 11:23:01 06/15/20 24 06/15/2024 CMP(C OMPRE HENSI VE METAB OLIC PANEL ) alkaline phosphatase 42 units /L 34-104 Not Available [facility] (Lab) [address], [place], [address], 06/16/2024 11:23:01 06/15/20 24 06/15/2024 CMP(C OMPRE HENSI VE METAB OLIC PANEL ) AST 20 units /L 13-39 Not Available [facility] (Lab) [address], [place], [address], 06/16/2024 11:23:01 06/15/20 24 06/15/2024 CMP(C OMPRE HENSI VE METAB OLIC PANEL ) bilirubin, total 0.5 mg/dL 0.2-1. 2 Not Available [facility] (Lab) [address], [place], [address], 06/16/2024 11:23:01 06/23/20 24 06/23/2024 pregn mayda test, urine HCG negati ve Not Available [facility] [address], [place], [address], 06/23/2024 12:05:19 06/25/20 24 06/25/2024 SURGI MICHELLE PATHO LOGY surgical pathology SEE RESULT S BELOW CASE REPOR T: Surgi michelle Patho logy Repor t Case: [id number] Autho cammy payton Provi wiley: Monica Muro MD Colle cted: 06/25 0823 Order ing Locat ion: [place] Patho logy Recei christi: 06/26 0102 Patho logis t: Can restrepo , Deepali Ford MD Speci men: Con hernadez, EMB ----- ----- ----- ----- ----- ----- ----- ----- ----- ----- ----- ----- ----- ----- ----- ----- ----- ---- FINAL DIAGN OSIS: Con hernadez, biops y: -Frag ments of inact gaby ocn hernadez with gland ular and jamie al break down, negat gaby for hyper plasi a and carci noma. Elect jazz laurent by Deepali Hernadez. 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 GROSS DESCR IPTIO N: AAlexis hernadez. The speci men is label ed with the patie nt's name, hernán moore cs and EM BX. Recei christi recei christi in forma kacie is a 1.7 x 0.4 x 0.1 cm aggre gate of mitch wright. It is submi tted all in casse tte A1. Gross ed by Wendi Calix on Not Available [facility] (Lab) [address], [place], [address], 06/26/2024 13:24:17 06/15/20 24 06/15/2024 US, pelvi s No observ ation record ed. [email or web address] [address], [place], [address], 06/16/2024 23:27:06 06/15/20 24 06/15/2024 US, trans vagin al No observ ation record ed. [facility] [address], [place], [address], 06/15/2024 17:23:48 07/03/20 24 07/02/2024 CT, abdom en + pelvi s, w/wo contr ast No observ ation record ed. [facility] [address], [place], [address], 07/05/2024 17:55:35 Result Notes None recorded. Problems Name Problem SNOMED Code Status Onset Date Resolution Date Notes Provider Name and Address Organization Details Recorded Time Removal of intraute rine device Completed 201210/06/2021 REMOVAL OF IUD;Recor ded Elsewhere : No Locati on: [facility] So urce: EHR Chron ic: N Practic e ID: 0001 Bill able Time: 03:00:00 PM Aixa Cantrell [facility] 2 17:57:[address] Concept Completed 201810/06/2021 Encntr for general adult medical exam w/o abnormal findings; Recorded Elsewhere : No Locati on: [facility] So urce: EHR Chron ic: N Practic e ID: 0001 Bill able Time: 10:30:00 AM Aixa alaniz [facility] 2 17:57:29 Speciali zed medical examinat ion Completed 201310/06/2021 Gynecolog ical Examinati on;Record ed Elsewhere : No Locati on: [facility] So urce: EHR Chron ic: N Practic e ID: 0001 Bill able Time: 03:00:00 PM Aixa Cantrell [facility] 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 2 17:57:29 Finding of pattern of menstrua l cycle [id number] Completed 201410/06/2021 Irregular interval between menstrual bleeding; Recorded Elsewhere : No Locati on: [facility] So urce: EHR Chron ic: N Practic e ID: 0001 Bill able Time: 08:45:00 AM Aixa Cantrell [facility] 2 17:57:29 Screenin g for malignan t neoplasm of rectum Completed 201610/06/2021 Encounter for screening for malignant neoplasm of rectum;Re corded Elsewhere : No Locati on: [facility] So urce: EHR Chron ic: N Practic e ID: 0001 Bill able Time: 09:00:00 AM Aixa Cantrell [facility] 2 17:57:29 Finding of sensatio n of breast Completed 201410/06/2021 Mastodyni a;Recorde d Elsewhere : No Locati on: [facility] So urce: EHR Chron ic: N Practic e ID: 0001 Bill able Time: 08:45:00 AM Aixa Cantrell [facility] 2 17:57:29 Galactor pushpa not associat ed with childbir [id number] Completed 201410/06/2021 Galactorr hea not associate d with childbirt h;Leandroe d Elsewhere : No Locati on: [facility] So urce: EHR Chron ic: N Practic e ID: 0001 Bill able Time: 08:45:00 AM Aixa Cantrell [facility] 2 17:57:29 Pregnanc y test negative [id number] Completed 201410/06/2021 Encounter for test, result negative; Recorded Elsewhere : No Locati on: [facility] So urce: EHR Chron ic: N Practic e ID: 0001 Bill able Time: 08:45:00 AM Aixa Cantrell [facility] 2 17:57:29 Body mass index 30+ - obesity [id number] Completed 201610/06/2021 Body mass index (BMI) 31.0-31.9 , adult;Rec orded Elsewhere : No Locati on: [facility] So urce: EHR Chron ic: N Practic e ID: 0001 Bill able Time: 09:00:00 AM Aixa Cantrell [facility] 2 17:57:29 Screenin g for malignan t neoplasm of cervix Completed 201610/06/2021 Screening for malignant neoplasms of the cervix;Re corded Elsewhere : No Locati on: [facility] So urce: EHR Chron ic: N Practic e ID: 0001 Bill able Time: 09:00:00 AM Aixa Cantrell [facility] 2 17:57:29 Adult health examinat ion Completed 201310/06/2021 ROUTINE MEDICAL EXAM;José rded Elsewhere : No Locati on: [facility] So urce: EHR Chron ic: N Practic e ID: 0001 Bill able Time: 03:00:00 PM Aixa Cantrell [facility] 2 17:57:29 Body mass index 25-29 - overweig ht [id number] Completed 201410/06/2021 Body mass index (BMI) 29.0-29.9 , adult;Rec orded Elsewhere : No Locati on: [facility] So urce: EHR Chron ic: N Practic e ID: 0001 Bill able Time: 09:30:00 AM [facility] 17:57:29 Problem Notes None recorded. Procedures Surgical History Date Name Laterality Status Provider Name and Address Organization Details Recorded Time 06/23/20 24 Endometrial Biopsy completed Arturo Muro MD [address], [place], [address], [facility] 06/23/2024 12:11:26 06/23/20 24 endometrial biopsy completed Altagracia Walton [facility] 06/23/2024 12:09:19 04/03/20 24 Date of Last Mammogram completed [facility] 06/14/2024 14:28:07 02/19/20 23 Date of Last Pap Smear completed [facility] 06/14/2024 14:27:17 02/19/20 22 Hysteroscopy completed Arturo Muro MD [address], [place], [address], [facility] 02/18/2022 10:36:11 02/19/20 22 IUD Insertion completed Arturo Muro MD [address], [place], [address], [facility] 02/18/2022 10:34:12 12/04/19 22 IUD Insertion completed PRATEEK Gonzalez [address], [place], [address], [facility] 12/03/2021 16:47:24 06/25/20 21 Orthopedic Surgery completed Altagracia Walton [facility] 06/23/2024 12:06:16 07/10/19 20 completed [facility] 10/07/2021 10:52:54 07/10/19 20 Date of Last Colonoscopy completed [facility] 10/07/2021 10:52:54 06/19/19 92 Orthopedic Surgery completed [facility] 06/23/2024 12:06:26 07/04/18 86 extraction of wisdom tooth completed [facility] 07/12/2024 09:16:49 Imaging Results None recorded. Procedure Notes None recorded. Medical Equipment None Reported. Allergies No known drug allergies Medications Name Sig Start Date Stop Date Status Note LastModified by Organization Details LastModified Time celecoxib 200 mg capsule 10/07 completed Not Available Not Available Not Available amoxicill in 500 mg capsule TAKE FOUR CAPSULES BY MOUTH ONE HOUR BEFORE PROCEDUR E 06/14 completed Not Available Not Available Not Available Mirena 21 mcg/24 hr (up to 8 years) 52 mg intrauter ine device Take by intraute rine route. active Not Available Not Available No t Available ibuprofen 800 mg tablet Take 1 tablet 2 hours before the procedur e. 02/18 completed Not Available Not Available Not Available hydrocodo ne 5 mg-acetam inophen 325 mg tablet 10/07 completed Not Available Not Available Not Available ondansetr on HCl 8 mg tablet 02/18 completed Not Available Not Available Not Available meloxicam 15 mg tablet TAKE 1 TABLET BY MOUTH ONCE DAILY 06/14 completed Not Available Not Available Not Available hydrocodo ne 10 mg-acetam inophen 325 mg tablet Take 1 tablet 2 hours before the procedur e. 02/18 completed Not Available Not Available Not Available aspirin 81 mg tablet,de layed release 10/07 completed Not Available Not Available Not Available tramadol 50 mg tablet 10/07 completed Not Available Not Available Not Available amoxicill in 500 mg tablet take 4 tablets 1 hour before procedur e 02/18 completed Not Available Not Available Not Available nystatin- triamcino lone 100,000 unit/gram -0.1 % topical ointment APPLY TO THE AFFECTED AREA(S) BY TOPICAL ROUTE 2 TIMES PER DAY FOR 7 DAYS 06/14 completed Not Available Not Available Not Available alprazola m 0.5 mg tablet 02/18 completed Not Available Not Available Not Available propranol ol 10 mg tablet 10/07 completed Not Available Not Available Not Available methocarb nemo 750 mg tablet 06/14 completed Not Available Not Available Not Available Synthroid 25 mcg tablet Take 1 tablet every day by oral route before meal(s) for 90 days. 06/14 completed Not Available Not Available Not Available dexametha sone 1 mg tablet 10/06 completed Not Available Not Available Not Available nitrofura ntoin macrocrys julisa 100 mg capsule TAKE 1 CAPSULE BY MOUTH EVERY 12 HOURS FOR 7 DAYS 02/18 completed Not Available Not Available Not Available Synthroid 50 mcg tablet Take 1 tablet(s ) every day by oral route for 90 days. 2024 active Not Available Not Available Not Avai lable mupirocin 2 % topical ointment 10/07 completed Not Available Not Available Not Available methylpre dnisolone 4 mg tablets in a dose pack 06/14 completed Not Available Not Available Not Available multivita min capsule take 1 capsule by oral route every day 10/07 completed Prescrib ed Elsewher e: No [facility]at [facility] By: kali Bhardwajt er DateTime : 05/25/20 11 05:15:00 PM Not Available Not Available Not Available Vaniqa 13.9 % topical cream APPLY TO AFFECTED AREA TWICE A DAY AT LEAST 8 HOURS APART AND AT LEAST 5 MINUTES AFTER HAIR REMOVAL active Not Available Not Available No t Available amoxicill in 875 mg-potass ium clavulana te 125 mg tablet 10/06 completed Not Available Not Available Not Available Maxzide 75 mg-50 mg tablet take 1 tablet by oral route every day 07/12 completed Prescrib ed Elsewher e: Yes [facility] By: whit jimenez DateTime : 07/11/19 19 10:30:00 AM Not Available Not Available Not Available bupropion HCl (bulk) 100 % powder 07/11 completed Prescrib ed Elsewher e: Yes Loca tion: [facility] odify By: whit jimenez DateTime : 05/30/20 12 03:00:00 PM Not Available Not Available Not Available Calcio Harmeet 500 mg tablet 10/07 completed Prescrib ed Elsewher e: Yes Loca tion: Eleanor fig[facility]eroa [facility] odify By: omedical Encount er DateTime : 05/25/20 11 05:15:00 PM Not Available Not Available Not Available B Complex-V itamin B12 active Not Available Not Available Not Available Fish Oil 360 mg-1,200 mg capsule 10/07 completed Prescrib ed Elsewher e: Yes Loca tion: Eleanor figueroa [facility] odify By: omedical Encount er DateTime : 05/25/20 11 05:15:00 PM Not Available Not Available Not Available Flonase Allergy Relief 50 mcg/actua tion nasal spray,lavell pension spray 1 - 2 spray by intranas al route every day in each nostril as needed 10/07 completed Prescrib ed Elsewher e: Yes [facility] odify By: whit jimenez DateTime : 07/12/19 09:30:00 AM Not Available Not Available Not Available Vitals Date Recorded Body height Body mass index (BMI) Body weight Systolic And Diastolic Provider Name and Address Organization Details Last Updated DateTime 02/18/2023 168.91 cm 28.5 kg/m2 03111.03 g 117/78 mm[Hg] Darcy Amezquita [facility] 02/18/2023 09:51:08 Date Recorded Body height Body mass index (BMI) Body weight Systolic And Diastolic Provider Name and Address Organization Details Last Updated DateTime 06/14/2024 168.91 cm 28.9 kg/m2 10286.81 g 122/80 mm[Hg] Miranda Torres [facility] 06/14/2024 14:26:25 Date Recorded Body height Body mass index (BMI) Body weight Systolic And Diastolic Provider Name and Address Organization Details Last Updated DateTime 06/20/2024 168.91 cm 28.6 kg/m2 15062.63 g 119/77 mm[Hg] Darcy Alirio [facility] 06/20/2024 15:37:42 Date Recorded Body height Body mass index (BMI) Body weight Systolic And Diastolic Provider Name and Address Organization Details Last Updated DateTime 06/23/2024 168.91 cm 28.6 kg/m2 51122.63 g 127/73 mm[Hg] Altagracia Walton [facility] 06/23/2024 12:04:04 Social History Question Answer Notes LastModified by Organizat ion Details LastModified Time Tobacco Smoking Status Never Smoker Pretty Lennonasim alaniz, [facility] 02/18/2023 09:40:51 Do You Have An Advance Directive? Yes Information n ot available 10/07/2021 Are You Blind Or Do You Have Difficulty Seeing? No Information n ot available 10/06/2021 What Is Your Level Of Caffeine Consumption? Occasional Information not available 12/03/2021 How Much Tobacco Do You Chew? None Information not available 10/07/2021 In The 14 Days Before Symptom Onset, Have You Had Close Contact With A Laboratory-confirm ed COVID-19 While That Case Was Ill? No Information n ot available 10/07/2021 In The 14 Days Before Symptom Onset, Have You Had Close Contact With A Person Who Is Under Investigation For COVID-19 While That Person Was Ill? No Information not available 10/07/2021 Have You Been To An Area Known To Be High Risk For COVID-19? No Information not available 10/07/2021 Are You Deaf Or Do You Have Serious Difficulty Hearing? No Information not available 10/06/2021 What Type Of Diet Are You Following? REGULAR Information n ot available 10/06/2021 What Is The Highest Grade Or Level Of School You Have Completed Or The Highest Degree You Have Received? [id number] Information not available 10/07/2021 Are There Any Guns Present In Your Home? Yes Information not available 10/07/2021 Do You Use Protection During Sex? No Information not available 10/07/2021 Do You Use Your Seat Belt Or Car Seat Routinely? Yes Information not available 10/06/2021 Are You Sexually Active? Yes Information not available 02/18/2023 Do You Have Smoke And Carbon Monoxide Detectors In Your Home? Yes Information not available 10/06/2021 How Much Tobacco Do You Smoke? No Information not available 10/07/2021 Do You Use Sunscreen Routinely? Yes Information not available 10/06/2021 Have You Used IV Drugs? No Information not available 10/07/2021 Do You Have Difficulty Walking Or Climbing Stairs? No Information not available 02/18/2023 Sex: Unknown Functional Status Question Answer Note LastModified by Organizat ion Details LastModified Time Do you use any illicit or recreational drugs? No Information not available 10/06/2021 What is your level of alcohol consumption? Occasional Information not available 10/06/2021 Are you able to walk? YESWOREST Information not available 10/06/2021 Are you able to care for yourself? 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 No Information not available 02/18/2023 What is your exercise level? Moderate Information not available 10/06/2021 Mental Status Question Answer Note LastModified by Organization D etails LastModified Time Do you feel stressed (tense, restless, nervous, or anxious, or unable to sleep at night)? [id number] Information not available 12/03/2021 Family History Relationship Description Onset Age of this Age Resolved Age Notes LastModified by Organization Details LastModified Time Maternal Aunt Malignant neoplasm of lung [email or web address] Not available 2021 09:44:11 Maternal Aunt Mental disorder [email or web address] Not available 2021 09:44:11 Maternal Grandmother Malignant neoplasm of lung [email or web address] Not available 2021 09:44:11 Mother Mental disorder [email or web address] Not available 2021 09:44:11 Medical History Condition Response Allergies (Food, seasonal, environmental ) N Other N Drug/Latex Allergies/Reactions N Breast Cancer N Blood Transfusion N Lung Disease N Dermatologic Disorders N Defects or Inherited Disease N Breast Problem N Gestational Diabetes N Hematologic disorders N Anesthesia Complications N History of STI N Deep Vein Thrombosis N Polycystic ovary syndrome N Anxiety Disorder N Autoimmune disease N Arthritis N Polyps N Infertility Y History of abnormal pap N Acid Reflux (GERD) N Cancer N Varicosities N Stroke N Neurologic/Epilepsy N Endometriosis N High Cholesterol N Headaches N Fibromyalgia N Kidney Disease N Heart Problems N Thyroid Problems Y Kidney or Bladder Problems N GI Problems N Eating Disorder N Anemia N Art (IVF or FET) N Psychiatric Illness N Ovarian Cancer N Diabetes N Pulmonary (TB, Asthma) N Hepatitis/Liver Disease N No Past Medical History N Eczema N Urinary Tract Infection N Abuse/Domestic Violence N Asthma N Trauma/Violence N Depression/ depression N Heart Disease N Pre-Eclampsia N Hypertension N Osteoporosis N Thrombophilias N Gynecological History Statement/Question Response Flow Heavy Date of Last Mammogram 04/03/2024 Date of LMP 01/18/2023 N On BCP's at Conception? N STIs/STDs N Was last menstrual period normal N HPV Vaccine N Duration of Flow (days) 4 Current Control Method IUD Age at First Child 39 Are cycles usually normal Y Date of Last Colonoscopy 07/10/2019 Frequency of Cycle (Q days) 8 Sexually Active? Y Menses Monthly N Age of first menstrual cycle 11 Date of Last Pap Smear 02/18/2023 Sexual Problems? N LMP Approximate Desired Control Method N/A 07/10/2019 N Obstetrics History GPAL:G 4 P 1 0 3 1 Type Value Full Term 1 Spontaneous 3 Living 1 Total 4 Past Encounters Encounter ID Performer Location Encounter Start Date Encounter Closed Date Diagnosis/Indication Diagnosis SNOMED-CT Code Diagnosis ICD10 Code Diagnosis Note [id number] PRATEEK Guillen[facility] [address] [address] 10/07/2021 10:24:47 10/07/2021 12:49:56 Gynecologic examination 72016582 Z01.419 Take Calcium with Vitamin D 12-1500mg daily. Do monthly self breast exams. It is advised to get annual flu shot in the fall and she could obtain at [facility] or [facility] care clinic. If you haven't received the Tdap vaccine in the last 10 years you should obtain one as well. Have mammogram yearly, bone density every 2-3 years and colonoscop y every 5-10 years depending on findings and history. Engage in daily exercise of low impact aerobic exercise 45-60 minutes 4-5 times weekly. Avoid tobacco and illicit drugs as well as using moderation with alcohol intake less than 1-2 8 oz beverages daily. This lifestyle behavior pattern will lead to less health conditions and longer life span. If BMI greater than 25 weight watchers or dietary consult advised. Questions have been answered. Patient appears to understand instructio ns, but if you have any further questions call or respond to this email No hx of abnormal paps. Last pap 2019 WNL, HPV (-). Pap done today.GC/C T added to papGenetic Screen, discussedC olon Screen (will discuss when she RTC for IUD insertion) Dexa Screen, N/AR[facility]ine Labs, following with [facility] for Mirena IUD insertion at onset of next menses Contracept ion care management [id number] Z30.9 N92.0 Montly menses lasting 4 days, day 2-3 are heavier days (changing tampons every 2-3 hours). No IMB bleeding. Discussed with patient she is likely perimenopa usal. Desires contracept ion to decrease flow. Options discussed, would like Mirena IUD. Will call office at onset of next menses and insert on days 1-5. Can use ibuprofen 600mg 1 hour prior to insertion to help with cramping. Discussed all control options and pt would like mirena IUD. I have discussed in detail all risks and benefits including risk of infection and perforatio n. She understand s she will need to contact office with next menses or may abstain. Aware of need to verify with insurance device coverage. Literature given. All questions answered to patient satisfacti on. [id number] PRATEEK Gonzalez [facility] [address] [address] 12/03/2021 15:19:34 12/03/2021 17:11:50 Contraception care management [id number] Z30.9 Currently on menses, urine hCG (-)IUD was placed in uterus in the normal fashion. Once strings were trimmed IUD was seen outside of cervical os and no longer in place. IUD was taken out and will be sent back to [facility].We discussed would like patient to get a pelvic u/s to make sure there is no uterine malformati ons that would prohibit IUD from staying in the uterus. Will have her obtain u/s, once u/s is done can discuss re-attempt ing IUD insertion. Patient to call the office with any abnormal bleeding, discharge, odors, or signs of infection. [id number] Arturo Muro MD [facility] [address] [address] 12/10/2021 09:24:32 12/10/2021 10:20:26 Pain in pelvis [id number] R10.2 [id number] Arturo Muro MD [facility] [address] [address] 01/05/2022 11:20:41 01/05/2022 16:55:59 Lesion of endometrium [id number] 9101 N85.9 Abnormal u terine bleeding [id number] 9100 N93.9 This patient is a 51-year-ol d female presents for abnormal uterine bleeding and ultrasound follow-up. We reviewed her ultrasound in detail. We shared images. I showed her her uterine fibroids and I showed her a lesion within the endometriu m. We talked about uterine fibroids. We talked about the etiology, natural history, treatment of uterine fibroids. Talked about what happens to fibroids in menopause. Talked about endometria l lesions. She has calcified endometria l lesion that may be a polyp or fibroid. We discussed menopause and her bleeding. She has irregularl y irregular periods. Without treatment of abnormal uterine bleeding. Talked about all her medical treatment options. Discussed everything from combined oral contracept gaby pills to Lupron, to the new GNRH agonist. Talked about moving forward with treatment and evaluation . patient would like IUD for her abnormal uterine bleeding. She knows that there is lesion that needs to be evaluated with hysterosco py D& C. She expelled her last IUD. We agreed to move forward with hysterosco py D&C, possible polypectom y, and IUD insertion. Spent over 40 minutes face-to-fa ce. More than 50% was counseling . Made a decision to perform surgery. [id number] Arturo Muro MD [facility] [address] [address] 02/18/2022 09:21:15 02/18/2022 12:11:44 [id number] Arturo Muro MD [facility] [address] [address] 02/18/2022 09:22:17 02/18/2022 12:11:54 Abnormal uterine bleeding [id number] 9100 N93.9 This patient is a 51-year-ol d female with endometria l lesion and abnormal uterine bleeding. Hysterosco py was performed today. curettage was performed and IUD was inserted. Was all performed without complicati on. Submucosal myoma was visualized . [id number] Arturo Muro MD [facility] [address] [address] 02/24/2022 15:33:07 02/24/2022 16:25:54 Abnormal uterine bleeding [id number] 9100 N93.9 this patient is a 51-year-ol d female irregular. Endometria l biopsy and IUD insertion could not be performed so hysterosco py D&C was performed. Reasonable image was obtained though it was suboptimal due to the nature of the scope. Endometria l curettage was performed thoroughly sampled. There was question of whether there was a fundal fibroid Pushing into the endometria l cavity. There appears to be correlated image of a fundal fibroid near the endometriu m. malignancy was definitely ruled out visually. The endometria l curettage results of the pathology reports supported that. There was hyperplasi a however. An IUD was inserted at that time of the hysterosco py D&C. She has perfect treatment for the hyperplasi a. That should reverse and she will follow-up in 6 months. We spent over 20 minutes face-to-fa ce. More than 50% was counseling . [id number] PRATEEK Gonzalez [facility] [address] [address] 06/08/2022 15:31:27 06/08/2022 16:02:40 Cloudy urine [id number] R82.90 [id number] PRATEEK Guillen[facility] [address] [address] 02/18/2023 09:40:30 02/18/2023 10:18:18 Gynecologic examination [id number] Z11.51 Z11.8 Z11.3 Take Calcium with Vitamin D 12-1500mg daily. Do monthly self breast exams. It is advised to get annual flu shot in the fall and she could obtain at [facility] or [facility]. If you haven't received the Tdap vaccine in the last 10 years you should obtain one as well. Have mammogram yearly, bone density every 2-3 years and colonoscop y every 5-10 years depending on findings and history. Engage in daily exercise of low impact aerobic exercise 45-60 minutes 4-5 times weekly. Avoid tobacco and illicit drugs as well as using moderation with alcohol intake less than 1-2 8 oz beverages daily. This lifestyle behavior pattern will lead to less health conditions and longer life span. If BMI greater than 25 weight watchers or dietary consult advised. Questions have been answered. Patient appears to understand instructio ns, but if you have any further questions call or respond to this email Pap/hpv sentSTD Screen declinedGe netic Screen discussedC olon Screen UTD 2020Dexa Screen naRoutine Labs orderedMam mo-WNL 12/2022 Hypothyroidism [id number] E03.9 Update TSH.If stable then refill current dosage.If needs adjustment s will contact with those changes. Adult heal th examination [id number] Z00.00 [id number] Arturo Muro MD [facility] [address] [address] 06/14/2024 14:20:54 06/14/2024 15:26:58 Pain in pelvis 57005156 R10.2 -Pelvic ultrasound ordered to further evaluate for potential causes of acute pelvic pain and to check Mirena IUD placement. 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 Utilize heating pad as needed.-Go to ER if pelvic pain increases in frequency or intensity. Also notify clinic of any new symptoms associated with pelvic pain. [id number] Arturo Muro MD [facility] [address] [address] 06/15/2024 09:11:13 06/15/2024 10:16:06 Pain in pelvis [id number] R10.2 [id number] Arturo Muro MD [facility] [address] [address] 06/20/2024 15:08:36 06/20/2024 16:34:48 Abdominal pain 86641919 R10.9 Postmenopa usal bleeding [id number] N95.0 Endometria l hyperplasia [id number] N85.00 This patient is a 54-year-ol d female presents for follow-up on abdominal/ pelvic. She has a right-side d lower abdominal / pelvic pain. It is intermitte nt. It lasts hours. It is sharp and crampy. It does not radiate. Nothing is palliative nothing is provocativ e. Talked about continued evaluation for abdominal pain. We agreed to CT scan. She denies any GI symptoms. She denies any constipati on, diarrhea, blood in her stool. We reviewed pelvic ultrasound results. She has fibroid uterus. Talked about fibroids. Talked about etiology, natural history, treatment of fibroid tumors. We talked about her endometria l hyperplasi a history. We agreed to repeat endometria l biopsy. She has had a Mirena IUD for the past 2 years. She has some intermitte nt spotting from time to time. This is likely from the Mirena IUD however, still this is postmenopa usal bleeding. We spent over 30 minutes on her care in total. We discussed 3 complex topics. [id number] MD [facility] [address] [address] 06/23/2024 11:06:16 06/23/2024 12:37:54 Screening procedure [id number] Z13.9 Endometria l hyperplasia [id number] N85.00 endometria l biopsy was performed. She tolerated it well. There were no complicati ons. Health Concerns Section Related Observation LastModified by Organization Detai ls LastModified Time None Recorded Concern Status LastModified by Organization Details LastModified Time None Recorded Advance Directives Directive Y: Payers Insurance Date Sequence Insurance Name Policy Number Policy [place] Covered Member ID [place] Member ID Guarantor Name 06/26/2024 1 [place] [id number] Luz Talley [id number] Ana María Talley Notes Date Note Type Note Provider Name and Address Organization Details Recorded Time 02/18/2023 text/html Annual GYNReport ed bypatient.History:no gynecologic complaints Menstrual cycle:Normal menses Urinary symptoms:No hematuria; No incontinence Vulva:No genital lesion Vagina:Normal vaginal discharge Breast:No breast pain; No breast lump; No nipple discharge Current Contraception:Satisf ied with current contraception; Intrauterine device (iud) Sexual complaints:No sexual complaints; No pain during intercourse; Normal libido Menopausal Symptoms:No menopausal symptoms; Normal vaginal lubrication Psychological symptoms:No depression; No anxiety; No PMDD Preventive measures:Encourage self breast examination; Encourage regular exercise; Encourage no tobacco use; Encourage regular mammograms starting age 40; Followed with yearly pap smears; Mammogram performed within the past year; Up to date on colonoscopy screening Felipa Green [facility]- [address], [place], [address], [facility] 02/18/2023 10:07:04 06/14/2024 text/html 54 y/o female patient here with c/o right-sided abdominal/pelvic pain that started one week ago.Patient also c/o mid to lower back pain that started the week prior.Patient visited UC two days ago - patient states that urine culture was negative for urinary tract infection, x-ray of back showed no abnormalities besides arthritis.Patient states that the pain feels like constant aching and stabbing in her right side, with a full back ache. Patient c/o bloating. Reports regular, normal bowel movements.Patient reports having hysteroscopy D&C in 2021 for abnormal bleeding/endometrial hyperplasia. Mirena IUD was also placed at that time.Patient has history of fibroid uterus, ovarian cysts, and endometrial lesions found on ultrasound. Patient does not have menstrual cycles and she denies abnormal vaginal bleeding.Neg N/V/DNeg fever, chillsNeg urinary frequency, urgency, dysuriaNeg vaginal irritation/discharge /odorNeg new sexual partners, dyspareuniaPatient states that she does not have a PCP. TIANA DAVIDSON NP [address], [place], [address], [facility] 06/14/2024 15:22:03 06/20/2024 text/html This patient is a 54-year-old female presents for follow-up on abdominal/pelvic. She has a right-sided lower abdominal / pelvic pain. It is intermittent. It lasts hours. It is sharp and crampy. It does not radiate. Nothing is palliative nothing is provocative. Talked about continued evaluation for abdominal pain. We agreed to CT scan. She denies any GI symptoms. She denies any constipation, diarrhea, blood in her stool. We reviewed pelvic ultrasound results. She has fibroid uterus. Talked about fibroids. Talked about etiology, natural history, treatment of fibroid tumors. We talked about her endometrial hyperplasia history. We agreed to repeat endometrial biopsy. She has had a Mirena IUD for the past 2 years. She has some intermittent spotting from time to time. This is likely from the Mirena IUD however, still this is postmenopausal bleeding. We spent over 30 minutes on her care in total. We discussed 3 complex topics. Arturo Muro MD [address], [place], [address], [facility] 06/20/2024 16:30:49 06/23/2024 text/html 54-year-old femtoi fried presents for endometrial biopsy. She has history of hyperplasia. The procedure was explained to the patient in detail. She understands the procedure. She understands the risks, benefits, and alternatives. She has completed the informed consent process and is ready to proceed. Arturo Muro MD [address], [place], [address], [facility] 06/23/2024 12:12:13 OBGyn Episode Ob Episode Information Episode Created Date Number of Fetuses Patient Bloodtype Patient rh Status Prepregnancy Weight lbs Domestic Partner Domestic Partner Phone Father Name Drier And Pulverizer Tender Status 10/08/19 22 1 CLOSED Fetus Data First Name Last Name Admitted to NICU Weight (g) Sex Living Outcome Pediatric Complications Fetus ID Race Codes Race Delivery Type , Spontane ous [id number] Valentin Calculation Initial Valentin Date Initial Exam Date Initial Exam Provider Initial Ultrasound Date Last Menstrual Period Date Ultra Sound Weeks Gestation 0 Eighteen To Twenty Week Valentin Update Ultra Sound Date Fundal Height At Umbil Quickening Date Ultra Sound Latest Weeks Gestation Final Valentin Confirmed By Final Valentin Confirmed Date Final Valentin Date Ultra Sound Latest Days Gestation 0 0 Menstrual History Last Menstrual Date Menses Monthly On Bcp Conception Prior Menses Frequency Hcg Plus Date Menarche Onset Age Delivery Information Delivery Date Delivery Type Labor Anesthesia Weeks Gestation Incision Type Labor Labor Length Hrs Delivered By Post Complications Tubal Sterilization Discharge Date Comments 9 Discharge Information Feeding Method Contraceptive Method Maternal HG B and HCT Levels Ob Episode Information Episode Created Date Number of Fetuses Patient Bloodtype Patient rh Status Prepregnancy Weight lbs Domestic Partner Domestic Partner Phone Father Name Drier And Pulverizer Tender Status 10/08/19 22 1 CLOSED Fetus Data First Name Last Name Admitted to NICU Weight (g) Sex Living Outcome Pediatric Complications Fetus ID Race Codes Race Delivery Type 3486.76 [id number] M Full Term [id number] Vaginal Delivery Valentin Calculation Initial Valentin Date Initial Exam Date Initial Exam Provider Initial Ultrasound Date Last Menstrual Period Date Ultra Sound Weeks Gestation 0 Eighteen To Twenty Week Valentin Update Ultra Sound Date Fundal Height At Umbil Quickening Date Ultra Sound Latest Weeks Gestation Final Valentin Confirmed By Final Valentin Confirmed Date Final Valentin Date Ultra Sound Latest Days Gestation 0 0 Menstrual History Last Menstrual Date Menses Monthly On Bcp Conception Prior Menses Frequency Hcg Plus Date Menarche Onset Age Delivery Information Delivery Date Delivery Type Labor Anesthesia Weeks Gestation Incision Type Labor Labor Length Hrs Delivered By Post Complications Tubal Sterilization Discharge Date Comments 9 Discharge Information Feeding Method Contraceptive Method Maternal HG B and HCT Levels Ob Episode Information Episode Created Date Number of Fetuses Patient Bloodtype Patient rh Status Prepregnancy Weight lbs Domestic Partner Domestic Partner Phone Father Name Drier And Pulverizer Tender Status 10/08/19 22 1 CLOSED Fetus Data First Name Last Name Admitted to NICU Weight (g) Sex Living Outcome Pediatric Complications Fetus ID Race Codes Race Delivery Type , Spontane ous [id number] Valentin Calculation Initial Valentin Date Initial Exam Date Initial Exam Provider Initial Ultrasound Date Last Menstrual Period Date Ultra Sound Weeks Gestation 0 Eighteen To Twenty Week Valentin Update Ultra Sound Date Fundal Height At Umbil Quickening Date Ultra Sound Latest Weeks Gestation Final Valentin Confirmed By Final Valentin Confirmed Date Final Valentin Date Ultra Sound Latest Days Gestation 0 0 Menstrual History Last Menstrual Date Menses Monthly On Bcp Conception Prior Menses Frequency Hcg Plus Date Menarche Onset Age Delivery Information Delivery Date Delivery Type Labor Anesthesia Weeks Gestation Incision Type Labor Labor Length Hrs Delivered By Post Complications Tubal Sterilization Discharge Date Comments 8 Discharge Information Feeding Method Contraceptive Method Maternal HG B and HCT Levels Ob Episode Information Episode Created Date Number of Fetuses Patient Bloodtype Patient rh Status Prepregnancy Weight lbs Domestic Partner Domestic Partner Phone Father Name Drier And Pulverizer Tender Status 10/08/19 22 1 CLOSED Fetus Data First Name Last Name Admitted to NICU Weight (g) Sex Living Outcome Pediatric Complications Fetus ID Race Codes Race Delivery Type , Spontane ous [id number] Valentin Calculation Initial Valentin Date Initial Exam Date Initial Exam Provider Initial Ultrasound Date Last Menstrual Period Date Ultra Sound Weeks Gestation 0 Eighteen To Twenty Week Valentin Update Ultra Sound Date Fundal Height At Umbil Quickening Date Ultra Sound Latest Weeks Gestation Final Valentin Confirmed By Final Valentin Confirmed Date Final Valentin Date Ultra Sound Latest Days Gestation 0 0 Menstrual History Last Menstrual Date Menses Monthly On Bcp Conception Prior Menses Frequency Hcg Plus Date Menarche Onset Age Delivery Information Delivery Date Delivery Type Labor Anesthesia Weeks Gestation Incision Type Labor Labor Length Hrs Delivered By Post Complications Tubal Sterilization Discharge Date Comments 8 Discharge Information Feeding Method Contraceptive Method Maternal HG B and HCT Levels
--- OUTSIDE RECORDS SUMMARY | 2025-01-09 09:30 | XMS_ITS | Referral Summary ---
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 Active cyanocobalamin (Vitamin B-12) 1,000 [...] (06/08/2021): Added automatically from request for surgery [id number] Palpitations 09/30/2017 Chest heaviness 09/30/2017 PVC (premature ventricular contraction) 10/01/19 18 PAT (paroxysmal atrial tachycardia) ([facility]) Galactorrhea not associated with childbirth 08/2014 Overview (10/13/2023): Galactorrhea not associated with childbirth;Recorded Elsewhere: No Location: [facility] Source: EHR Chronic: N Practice ID: [id number] Billable Time: 08:45:00 AM Hypothyroidism 04/30/2013 Immunizations Immunization Administration Dates Next Due Influenza, Quadrivalent, Rec ombinant, Egg Free, Preservative Free, Intramuscular 04/02/2020,06/14/2019 Influenza, Quadrivalent, Spl it, Preservative Free, Intramuscular 04/04/2018 TD Preservative Free 10/18/2017 Social History Tobacco Use Types Packs/Day Years [...] on file Legal Sex 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 Gender Identity Not on file Sexual Orientation Not on file Last Filed Vital Signs Vital Sign Reading Time Taken Comments Blood Pressure 131/77 06/11/2024 6:08 PM PULLING UNIT OPERATOR Pulse 68 06/11/2024 6:08 PM PULLING UNIT OPERATOR Temperature 36.6 C (97.9 F) 06/11/2024 6:08 PM PULLING UNIT OPERATOR Respiratory Rate 18 06/11/2024 6:08 PM PULLING UNIT OPERATOR Oxygen Saturation 98% 06/11/2024 6:08 PM PULLING UNIT OPERATOR Inhaled Oxygen Concentration - - Weight 82.5 kg (181 lb 14.4 oz) 06/11/2024 6:08 PM PULLING UNIT OPERATOR Height 170.2 cm (5' 7.01) 06/11/2024 6:08 PM CS T Body Mass Index 28.48 06/11/2024 6:08 PM PULLING UNIT OPERATOR Plan of Treatment Not on file Medical Devices Implanted Type Area Press Operator Device Identifier Shelf Expiration Date Model / Serial / Lot [employer] [id number] Cup Acetabular Bi Mentum Od49mm Femoral Proximal Press Fit - Sna - [id number] Implanted:Qty: 1 on 06/25/2021 by Rashid Amaya MD at [facility] Other - see comments Left: Hip [employer] [id number] 10/01/2024 [id number] / NA / [id number] Description:Implant pause pe rformed [employer] [id number] Actis Collar Hip 7 Standard Offset Stem Femoral - Sna - [id number] Implanted:Qty: 1 on 06/25/2021 by Rashid Amaya MD at [facility] Other - see comments Left: Hip [employer] [id number] 06/02/2031 [id number] / NA / [id number] Description:Implant pause pe rformed [employer] [id number] Articul/Abelardo 28mm Cementless Hip +1.5mm 06/16 Taper Head Femoral Latex Free - Sna - [id number] Implanted:Qty: 1 on 06/25/2021 by Rashid Amaya MD at [facility] Other - see comments Left: Hip [employer] [id number] 05/03/2026 [id number] / NA / [id number] Description:Implant pause pe rformed [employer] [id number] Liner Acetabular Bi Mentum Polyethylene Od49mm Id28mm Femoral Proximal - Sna - [id number] Implanted:Qty: 1 on 06/25/2021 by Rashid Amaya MD at [facility] Other - see comments Left: Hip [employer] [id number] 10/01/2025 [id number] / NA / [id number] Description:Implant pause pe rformed Insurance [facility]ICE [facility] [place] Advance Directives For more information, please contact: [phone] * Full Code (Latest Code Status on File) Date Activated Date Inactivated Comments 06/25/2021 8:27 AM 06/25/2021 7:28 PM Care Teams Chemistry Tutor Relationship Specialty Start Date End Date Anastasia Valentino MD [address] [place] [address] PCP - General Family Medicine 09/05/17 Anastasia Valentino MD [address] [place] [address] 09/05/17
== END 2025-01-09 09:20 | disposition home or self-care (01) ==
LOC: ANHIMG 09:21
PROVIDERS: PCP Family Medicine; Visit Provider Obstetrics & Gynecology
DX: Z12.31 Encounter for screening mammogram for malignant neoplasm of breast (principal)
CPT/HCPCS: 77063; 77067